=== PATIENT | male | born 1975 | race African-American/Black ===

== ENCOUNTER 2020-12-16 05:12 | Emergency (ER) | payer MEDICARE, MEDICAID ==
[~2020-12-16] VITALS: Ht 167.6 cm; Wt 77.1 kg
--- NOTE | 2020-12-16 06:16 | NUR ---
URINE COLLECTED AND SENT TO THE LAB.
[2020-12-16 06:41] LABS: BASOPHILS # (AUTO) 0.1 K/uL (0.0-0.2); BASOPHILS % (AUTO) 0.8 % (0.0-2.0); EOSINOPHILS % (AUTO) 1.9 % (0.0-6.0); HEMATOCRIT 45 % (39-51); HEMOGLOBIN 15.2 g/dL (13.5-17.5); LYMPHOCYTES # (AUTO) 2.6 K/uL (0.8-4.8); LYMPHOCYTES % (AUTO) 33.6 % (20.0-44.0); MEAN CORPUSCULAR HGB CONC 34 g/dl (31.0-36.0); MEAN CORPUSCULAR VOLUME 91 fL (80-96); MONOCYTES # (AUTO) 0.6 K/uL (0.1-1.30); MONOCYTES % (AUTO) 8.2 % (2.0-12.0); NEUTROPHILS # (AUTO) 4.3 K/uL (1.8-8.9); NEUTROPHILS % (AUTO) 55.5 % (43.0-81.0); PLATELET COUNT (AUTO) 332 K/uL (150-450); RED BLOOD CELL COUNT(AUTO) 4.94 MIL/uL (4.5-6.0); WHITE BLOOD COUNT (AUTO) 7.7 K/uL (4.3-11.0)
[2020-12-16 06:49] LABS: BILIRUBIN,URINE SMALL (NEGATIVE); COLOR,URINE YELLOW (YELLOW); LEUKOCYTE ESTERASE ,URINE NEGATIVE (NEGATIVE); NITRITE, URINE NEGATIVE (NEGATIVE); PH,URINE 5.5 (5.0-8.0); PROTEIN,URINE NEGATIVE (NEGATIVE); UGLUCOSE NEGATIVE (NEGATIVE)
[2020-12-16 07:14] LABS: CALCIUM, SERUM 9.4 mg/dL (8.5-10.1); CARBON DIOXIDE 30 mmol/L (21-32); CHLORIDE 101 mmol/L (98-107); GLUCOSE 86 mg/dL (74-106); POTASSIUM 4.4 mmol/L (3.5-5.1); SODIUM SERUM 140 mmol/L (136-145); UREA NITROGEN, BLOOD 17 mg/dL (7-18)
[2020-12-16 07:19] LABS: ALANINE AMINOTRANSFERASE 31 U/L (12-78); ALBUMIN 4.4 g/dL (3.4-5.0); ALKALINE PHOSPHATASE 88 U/L (46-116); ASPARTATE AMINOTRANSFERASE 24 U/L (15-37); BILIRUBIN,DIRECT 0.2 mg/dL (0.0-0.2); BILIRUBIN,TOTAL 0.8 mg/dL (0.2-1.0); TOTAL PROTEIN, SERUM 9.2 g/dL (6.4-8.2)
[2020-12-16 07:20] LABS: ACETAMINOPHEN < 10 ug/ml (10-30)
--- NOTE | 2020-12-16 07:20 | NUR ---
ASSUME PATIENT CARE. VERBALLY RESPONSIVE. STATES BEEN STRESS OUT LATELY AND HAVING SUICIDAL IDEATION BUT DENIES ANY ACTIVE PLAN. PT DENIES HI. REQUESTING VOLUNTARY PSYCH ADMISSION. STABLE VITALS. SEEN AND EVALUATED BY ED PROVIDER. WILL CONTINUE TO MONITOR.
[2020-12-16 07:21] LABS: ALCOHOL, BLOOD < 3 mg/dL (0-0)
[2020-12-16 08:16] LABS: BACTERIA,URINE Rare /HPF (None Seen); RBC,URINE 0-2 /HPF (0-2); SQUAMOUS EPITHELIAL CELL,UR Rare /HPF (None Seen)
--- NOTE | 2020-12-16 09:10 | NUR ---
FAXED CLINICALS TO [facility].
[2020-12-16 10:35] VITALS: BP 128/74
--- NOTE | 2020-12-16 11:45 | NUR ---
PT PROVIDED W/ MEAL TRAY.
--- NOTE | 2020-12-16 12:05 | NUR ---
PT NOT AT HIS HOLDING ROOM. LAST SEEN AT AROUND NOON TIME S/P GIVEN LUNCH TRAY.
== END 2020-12-16 14:25 | disposition left against medical advice (07) ==
LOC: ER 05:16
DX: R45.851 Suicidal ideations (principal); Z20.822 Contact with and (suspected) exposure to COVID-19; R03.0 Elevated blood-pressure reading, without diagnosis of hypertension; Z53.29 Procedure and treatment not carried out because of patient's decision for other reasons; Z59.02 Unsheltered homelessness; F15.90 Other stimulant use, unspecified, uncomplicated
CPT/HCPCS: 36415; 80048-TC; 80076-TC; 81001; 85025-TC; 87086-TC; C9803; G0480

== ENCOUNTER 2020-12-25 19:31 | Emergency (ER) | payer MEDICARE, OTHER ==
[~2020-12-25] VITALS: Ht 167.6 cm; Wt 77.1 kg
--- NOTE | 2020-12-25 20:45 | NUR ---
CHARLINE C/O DOG BITE ON R WRIST X3 DAYS AGO. UPDATED TDAP. LACERATION AND SWELLING NOTED TO R HAND. MD WAS AT BEDSIDE FOR EVAL ALL VITAL SIGNS STABLE.
[2020-12-25] MEDS ORDERED: ACETAMINOPHEN ES 500 MG TABLET ONE (20:49)
[2020-12-25] MEDS ORDERED: AMOX/CLAVULANATE 875 MG TABLET ONE (20:49)
[2020-12-25] MEDS ORDERED: AMOX/CLAVULANATE 875 MG TABLET PO ONE (21:00)
[2020-12-25] MEDS ORDERED: ACETAMINOPHEN ES 500 MG TABLET PO ONE (21:00)
[2020-12-25] MEDS ORDERED: AMOX-430 PO (21:31)
[2020-12-25 21:45] VITALS: BP 130/75
== END 2020-12-25 21:46 | disposition home or self-care (01) ==
LOC: ER 19:39
DX: S61.531A Puncture wound without foreign body of right wrist, initial encounter (principal); F32.9 Major depressive disorder, single episode, unspecified; Z88.6 Allergy status to analgesic agent; W54.0XXA Bitten by dog, initial encounter; Y93.89 Activity, other specified; Y92.89 Other specified places as the place of occurrence of the external cause; Y99.8 Other external cause status
CPT/HCPCS: 73110

== ENCOUNTER 2020-12-27 04:18 | Emergency (ER) | payer MEDICARE, OTHER ==
[~2020-12-27] VITALS: Ht 175.3 cm; Wt 75.3 kg
[~2020-12-27 04:18] MED LIST: AMOX-430 PO
--- NOTE | 2020-12-27 04:51 | NUR ---
CALLED FOR TRIAGE, NOT IN WAITING ROOM
--- NOTE | 2020-12-27 05:43 | NUR ---
CALLED FOR TRIAGE, NO ANSWER.
[2020-12-27 06:32] VITALS: BP 132/68
== END 2020-12-27 08:20 | disposition home or self-care (01) ==
LOC: ER 04:20
DX: S61.551D Open bite of right wrist, subsequent encounter (principal); M79.671 Pain in right foot; F32.9 Major depressive disorder, single episode, unspecified; Z59.00 Homelessness unspecified; Z88.6 Allergy status to analgesic agent; W54.0XXD Bitten by dog, subsequent encounter
CPT/HCPCS: 73630-TC

== ENCOUNTER 2020-12-28 14:27 | Emergency (ER) | payer MEDICARE, OTHER ==
[~2020-12-28] VITALS: Ht 167.6 cm; Wt 77.6 kg
[2020-12-28 15:15] LABS: BASOPHILS # (AUTO) 0.1 K/uL (0.0-0.2); BASOPHILS % (AUTO) 1.4 % (0.0-2.0); EOSINOPHILS % (AUTO) 0.7 % (0.0-6.0); HEMATOCRIT 39 % (39-51); HEMOGLOBIN 13.2 g/dL (13.5-17.5); LYMPHOCYTES % (AUTO) 37.1 % (20.0-44.0); MEAN CORPUSCULAR HGB CONC 34 g/dl (31.0-36.0); MEAN CORPUSCULAR VOLUME 90 fL (80-96); MONOCYTES # (AUTO) 0.5 K/uL (0.1-1.30); MONOCYTES % (AUTO) 5.9 % (2.0-12.0); NEUTROPHILS # (AUTO) 4.4 K/uL (1.8-8.9); NEUTROPHILS % (AUTO) 54.9 % (43.0-81.0); PLATELET COUNT (AUTO) 346 K/uL (150-450); RED BLOOD CELL COUNT(AUTO) 4.37 MIL/uL (4.5-6.0); WHITE BLOOD COUNT (AUTO) 8.1 K/uL (4.3-11.0)
--- NOTE | 2020-12-28 15:30 | NUR ---
URINE COLLECTED AND SENT TO THE LAB
[2020-12-28 15:48] LABS: ACETAMINOPHEN < 10 ug/ml (10-30); ALANINE AMINOTRANSFERASE 24 U/L (12-78); ALBUMIN 3.7 g/dL (3.4-5.0); ALCOHOL, BLOOD < 3 mg/dL (0-0); ALKALINE PHOSPHATASE 63 U/L (46-116); ASPARTATE AMINOTRANSFERASE 21 U/L (15-37); BILIRUBIN,DIRECT 0.2 mg/dL (0.0-0.2); BILIRUBIN,TOTAL 0.8 mg/dL (0.2-1.0); CALCIUM, SERUM 9.1 mg/dL (8.5-10.1); CARBON DIOXIDE 28 mmol/L (21-32); CHLORIDE 103 mmol/L (98-107); GLUCOSE 83 mg/dL (74-106); POTASSIUM 3.8 mmol/L (3.5-5.1); SODIUM SERUM 141 mmol/L (136-145); TOTAL PROTEIN, SERUM 7.2 g/dL (6.4-8.2); UREA NITROGEN, BLOOD 12 mg/dL (7-18)
[2020-12-28 16:04] LABS: BILIRUBIN,URINE SMALL (NEGATIVE); COLOR,URINE DARK YELLOW (YELLOW); LEUKOCYTE ESTERASE ,URINE NEGATIVE (NEGATIVE); NITRITE, URINE NEGATIVE (NEGATIVE); PROTEIN,URINE TRACE mg/dl (NEGATIVE); UGLUCOSE NEGATIVE (NEGATIVE); UROBILINOGEN,URINE 0.2 EU/dL (0.2)
[2020-12-28 16:38] LABS: BACTERIA,URINE RARE /HPF (None Seen); SQUAMOUS EPITHELIAL CELL,UR 0-2 /HPF (None Seen); WBC,URINE 0-2 /HPF (0-3)
[2020-12-28 16:39] LABS: MUCUS,URINE Few /LPF (None Seen); SPERM,URINE Many /HPF (None Seen); URIC ACID CRYSTALS,URINE Many /HPF (None Seen)
--- NOTE | 2020-12-28 17:50 | NUR ---
PATIENT AOX3. ABLE TO MAKE NEEDS KNOW. DENIES ANY SOB OR CP. DENIES ANY HI/SI.
--- NOTE | 2020-12-28 17:53 | NUR ---
Patient does not wish to proceed with medical care recommended by Dr. Mancuso. Patient given information related to possible complications, up to and including , which could occur as a result of leaving the hospital at this time. Patient verbalizes understanding of risks involved due to leaving against medical advice. Patient has signed AMA form.
[2020-12-28 18:02] VITALS: BP 118/68
== END 2020-12-28 18:04 | disposition left against medical advice (07) ==
LOC: ER 14:29
DX: F32.9 Major depressive disorder, single episode, unspecified (principal); Z88.6 Allergy status to analgesic agent
CPT/HCPCS: 36415; 80048-TC; 80076-TC; 81001; 85025-TC; G0480

== ENCOUNTER 2020-12-29 22:42 | Emergency (ER) | payer MEDICARE, OTHER ==
[~2020-12-29] VITALS: Ht 167.6 cm; Wt 77.6 kg
[2020-12-29 23:16] VITALS: BP 154/82
== END 2020-12-30 00:25 | disposition home or self-care (01) ==
LOC: ER 23:04
DX: S71.112D Laceration without foreign body, left thigh, subsequent encounter (principal); S61.551D Open bite of right wrist, subsequent encounter; F32.9 Major depressive disorder, single episode, unspecified; Z59.00 Homelessness unspecified; Z88.6 Allergy status to analgesic agent; W54.0XXD Bitten by dog, subsequent encounter

== ENCOUNTER 2021-02-13 05:21 | Emergency (ER) | payer MEDICARE, OTHER ==
[~2021-02-13] VITALS: Ht 175.3 cm; Wt 72.6 kg
[2021-02-13 06:20] VITALS: BP 119/75
--- NOTE | 2021-02-13 06:20 | NUR ---
C/O BILATERAL FOOT PAIN FOR A FEW WEEKS. DENIES ANY TRAUMA OR RECENT INJURIES STATES IT'S FROM BLISTERS. BREATHING EVEN AND UNLABORED ALL V/S STABLE.
[2021-02-13] MEDS ORDERED: CLOT15CR27 TP (06:42)
== END 2021-02-13 07:16 | disposition home or self-care (01) ==
LOC: ER 05:28
DX: B35.3 Tinea pedis (principal)

== ENCOUNTER 2021-07-26 11:46 | Emergency (ER) | payer MEDICARE, OTHER ==
[~2021-07-26 11:46] MED LIST changes: +CLOT15CR27 TP
== END 2021-07-26 12:21 | disposition home or self-care (01) ==
LOC: ER 12:00
DX: Z53.21 Procedure and treatment not carried out due to patient leaving prior to being seen by health care provider (principal)

== ENCOUNTER 2023-02-14 22:13 | Emergency (ER) | payer MEDICAID, MEDICARE ==
[~2023-02-14] VITALS: Ht 170.2 cm; Wt 71.2 kg
[2023-02-14 22:35] VITALS: BP 131/70; TEMP 98.7; O2SAT 93
[2023-02-14] MEDS ORDERED: TRAMADOL HCL 50 MG TABLET PO ONE (23:00)
[2023-02-14] MEDS ORDERED: ONDANSETRON 4 MG TAB.RAPDIS SL ONE (23:00)
== END 2023-02-14 22:36 | disposition home or self-care (01) ==
LOC: ER 22:15
DX: A05.9 Bacterial foodborne intoxication, unspecified (principal); M79.672 Pain in left foot; M79.671 Pain in right foot; F32.A Depression, unspecified; Z79.899 Other long term (current) drug therapy; Z59.00 Homelessness unspecified; Z88.1 Allergy status to other antibiotic agents